=== PATIENT | female | born 1945 | race Caucasian/White ===

== ENCOUNTER 2023-01-23 06:28 | Day surgery (SDC) | payer MEDICARE, OTHER ==
[~2023-01-23] VITALS: Ht 172.7 cm; Wt 89.8 kg
[2023-01-23] VITALS (7 sets, daily range): BP systolic 124–153; BP diastolic 70–84
[~2023-01-23 06:28] MED LIST: ATOR40TA PO; Aspir 8181 MG PO; BENADRYL25 MG PO; Isosorbide Mono30 MG PO; NEBI5 PO; ZESTORETIC 20-251 EA PO
[2023-01-23] MEDS ORDERED: CARV3.125 PO (09:05)
--- NOTE | 2023-01-23 11:56 | NUR ---
[facility] CALLED TO [facility], PT TR BAND REMOVED, DRESSING PLACED, SITE STABLE, IV DC'D INTACT, PT DC'D BY WC CHAIR BY THIS RN, DRIVING PT HOME.
== END 2023-01-23 11:40 | disposition home or self-care (01) ==
LOC: MHTC 06:28
DX: I25.118 Atherosclerotic heart disease of native coronary artery with other forms of angina pectoris (principal); I49.3 Ventricular premature depolarization; I25.82 Chronic total occlusion of coronary artery; I08.2 Rheumatic disorders of both aortic and tricuspid valves; I12.9 Hypertensive chronic kidney disease with stage 1 through stage 4 chronic kidney disease, or unspecified chronic kidney disease; N18.31 Chronic kidney disease, stage 3a; I25.2 Old myocardial infarction; E78.5 Hyperlipidemia, unspecified; Z87.891 Personal history of nicotine dependence; Z79.82 Long term (current) use of aspirin; Z79.899 Other long term (current) drug therapy
CPT/HCPCS: 93458; 99152; 99153; C1769; C1887; C1894; J1644; J2250; J3010; J7030; J7050; Q9967